=== PATIENT | female | born 1985 | race Caucasian/White ===

== ENCOUNTER 2022-01-14 06:15 | Inpatient (IN) | payer OTHER ==
[2022-01-14] MEDS ORDERED: SIMETHICONE 80 MG TAB.CHEW (FP) PO PRN (07:46)
[2022-01-14] MEDS ORDERED: METHYLERGONOVINE MALEATE 0.2 MG/1 ML AMP IM PRN (07:46)
[2022-01-14] MEDS ORDERED: ACETAMINOPHEN 325 MG TABLET (FP) PO PRN (07:46)
[2022-01-14] MEDS ORDERED: IBUPROFEN 800 MG/8 ML IJ IVPB PRN (07:46)
[2022-01-14] MEDS ORDERED: ELECTROLYTE-148 SOLN 1,000 ML IV SCH (08:00)
[2022-01-14] MEDS ORDERED: ONDANSETRON 4 MG/2 ML VIAL ONE (08:01)
[2022-01-14] MEDS ORDERED: SUCCINYLCHOLINE CHLORIDE 200 MG/10 ML SYRINGE ONE (08:01)
[2022-01-14] MEDS ORDERED: PROPOFOL 20 ML ONE (08:01)
[2022-01-14] MEDS ORDERED: morphine SULFATE/PF 1 MG/2 ML (2cc Syringe - QUVA) ONE (08:02)
[2022-01-14] MEDS ORDERED: ceFAZolin SODIUM 1 GM VIAL ONE (08:35)
[2022-01-14] MEDS ORDERED: PHENYLEPHRINE HCL 10 MG/1 ML SINGLE DOSE VIAL ONE (08:35)
[2022-01-14] MEDS: OXYTOCIN 20 UNITS in 0.9% NS 20 UNIT/1,000 ML INFUS.BAG IV SCH ×2 (09:00→21:10)
[2022-01-14] MEDS ORDERED: ACETAMINOPHEN 1000 MG/100 ML BAG IVPB PRN (10:01)
[2022-01-14 11:15] VITALS: BMI 24.3
[2022-01-14 11:51] LABS: CORD HCO3 20.9 mmHg (20-29); CORD pH 7.238 (7.14-7.44)
[2022-01-14 11:54] LABS: CORD BASE EXCESS -4.1 mmol/L (0-2); CORD HCO3 24.4 mmHg (20-29); CORD PCO2 57.7 mmHg (30-78); CORD pH 7.244 (7.14-7.44)
[2022-01-14] MEDS ORDERED: OXYTOCIN 20 UNITS in 0.9% NS 20 UNIT/1,000 ML INFUS.BAG IV ONE (12:06)
[2022-01-14] MEDS: PRENATAL VITAMINS W/ FOLIC ACID TABLET (FP) PO SCH (12:34)
[2022-01-14] MEDS: FERROUS SO4 325 MG TABLET (FP) PO SCH ×2 (12:34→16:50)
[2022-01-15] MEDS ORDERED: BISACODYL 10 MG SUPP.RECT RC PRN (07:46)
[2022-01-15 09:16] LABS: BASO % 0.1 % (0-2.0); EOS % 0.6 % (0-4.5); HEMOGLOBIN 9.6 GM/dL (10.7-15.3); LYMPH % 7.5 % (8-40); MCH 31.1 pg (25.7-33.7); MCHC 34.4 g/dl (32.0-36.0); MEAN CELL VOLUME 90.5 fl (80-96); MEAN PLT VOLUME 6.3 fl (7.5-11.1); MONO % 4.7 % (3.8-10.2); NEUT % 87.1 % (42.8-82.8); PLATELET COUNT 160 10^3/uL (134-434); RBC 3.09 M/mm3 (3.60-5.2); RDW 13.1 % (11.6-15.6)
[2022-01-15] MEDS: PRENATAL VITAMINS W/ FOLIC ACID TABLET (FP) PO SCH (09:42)
[2022-01-15] MEDS: FERROUS SO4 325 MG TABLET (FP) PO SCH ×2 (09:42→17:09)
[2022-01-15] MEDS ORDERED: oxyCODONE HCL 5 MG TABLET PO PRN ×2 (10:00→19:46)
[2022-01-15] MEDS: IBUPROFEN 600 MG TABLET (FP) PO PRN (13:44)
[2022-01-15 22:25] VITALS: TEMP 98.4
[2022-01-16] MEDS: IBUPROFEN 600 MG TABLET (FP) PO PRN (07:09)
[2022-01-16 09:18] VITALS: BP 122/73; PULSE 89
[2022-01-16] MEDS: FERROUS SO4 325 MG TABLET (FP) PO SCH (09:41)
[2022-01-16] MEDS: PRENATAL VITAMINS W/ FOLIC ACID TABLET (FP) PO SCH (09:41)
== END 2022-01-16 12:00 | disposition home or self-care (01) | DRG 540 ==
LOC: JLDR 06:15 → J3W 12:05
PROVIDERS: ADMIT Obstetrics & Gynecology; ATTEND Obstetrics & Gynecology
PROC: 10D00Z1 Extraction of Products of Conception, Low, Open Approach (ICD-10-PCS; principal; 2022-01-14)
DX: O34.211 Maternal care for low transverse scar from previous cesarean delivery (principal); N85.8 Other specified noninflammatory disorders of uterus; O99.02 Anemia complicating childbirth; Z3A.39 39 weeks gestation of pregnancy; D64.9 Anemia, unspecified; Z37.0 Single live birth
CPT/HCPCS: 36415; 36600; 82803; 85025; 88307-TC